=== PATIENT | female | born 1980 ===

== ENCOUNTER 2017-11-24 23:32 | Emergency (ER) | payer BC, MEDICAID ==
[2017-11-25] VITALS: BP 114/76; PULSE 70; RESP 18; TEMP 98.3; O2SAT 99
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
== END 2017-11-25 03:30 | disposition home or self-care (01) ==
LOC: H.ER 23:32
DX: M54.5 Low back pain (principal); W10.9XXA Fall (on) (from) unspecified stairs and steps, initial encounter
CPT/HCPCS: 72131; 81025; 96372; 99283; J1885

== ENCOUNTER 2018-01-22 23:05 | Emergency (ER) | payer BC, MEDICAID ==
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
[2018-01-23 01:55] LABS: BASO # 0.1 K/uL (0.0-0.2); BASO % 1.1 % (0.0-2.0); EOS # 0.1 K/uL (0.0-0.7); EOS % 0.9 % (0.0-4.0); HEMOGLOBIN 13.8 g/dL (12.0-16.0); LYMPH # 1.4 K/uL (1.0-4.3); MEAN CELL VOLUME 98.1 fl (81.0-99.0); MEAN CORPUSCULAR HEMOGLOBIN 32.7 pg (27.0-31.0); MEAN CORPUSCULAR HGB CONC 33.3 g/dL (33.0-37.0); MONO # 0.3 K/uL (0.0-0.8); MONO % 3.6 % (0.0-10.0); NEUT # 5.8 K/uL (1.8-7.0); NEUT % 75.4 % (50.0-75.0); NRBC % 0.1 % (0.0-0.0); RBC 4.22 Mil/uL (3.80-5.20); RED CELL DISTRIBUTION WIDTH 13.6 % (11.5-14.5); WHITE BLOOD COUNT 7.6 K/uL (4.8-10.8)
[2018-01-23 02:08] LABS: ALB/GLOB RATIO 1.3 (1.0-2.1); ALBUMIN 4.5 g/dL (3.5-5.0); ALT/SGPT 42 U/L (9-52); AST/SGOT 32 U/L (14-36); BLOOD UREA NITROGEN 8 mg/dl (7-17); CALCIUM 8.8 mg/dL (8.4-10.2); GFR AFRICAN-AMERICAN > 60; GFR NON-AFRICAN AMERICAN > 60
[2018-01-23 07:35] VITALS: RESP 16
[2018-01-23 09:04] VITALS: BP 96/51; PULSE 88; TEMP 97.6; O2SAT 98
== END 2018-01-23 09:06 | disposition home or self-care (01) ==
LOC: H.ER 23:05
DX: H72.92 Unspecified perforation of tympanic membrane, left ear (principal); S00.83XA Contusion of other part of head, initial encounter; S09.90XA Unspecified injury of head, initial encounter; R68.84 Jaw pain; S09.93XA Unspecified injury of face, initial encounter; Y04.0XXA Assault by unarmed brawl or fight, initial encounter; F10.129 Alcohol abuse with intoxication, unspecified
CPT/HCPCS: 70450; 70486; 80053; 82948; 85025; 96372; 99285; G0480; J1630; J2060